=== PATIENT | female | born 1955 | race Caucasian/White ===

== ENCOUNTER → 2016-10-26 | Outpatient (CLI) | payer BC ==
[~2016-10-26] MED LIST: IOHEXOL 240 MG/ML 50ML VIAL. PO ONE; IOHEXOL 300 MG/ML 75 ML VIAL IV ONE
--- NOTE | 2016-10-26 15:30 | RAD ---
Exam performed: CT abdomen pelvis with contrast. History: Left lower quadrant pain, history of diverticulitis. Date of service: 10/26/16. Comparison: None available Technique: Contiguous helical acquisitions are obtained through the abdomen and pelvis during intravenous administration of 75 cc of Omnipaque 300. Oral contrast was given. Sagittal and coronal reformatted images are obtained and reviewed. Findings: Within the left lower quadrant there is a oval fatty attenuation surrounded by inflammatory changes. The findings are consistent with epiploic appendagitis. The lung bases are essentially clear. The visualized heart is normal. The liver, spleen, pancreas and gallbladder are normal. Both adrenal glands and bilateral kidneys are normal in size with symmetric excretion of contrast via both kidneys. There is no hydronephrosis or nephrolithiasis. The small and large bowel loops are nondilated and unremarkable. Appendix is normal. A hernia repair mesh is seen in the right mid and lower abdomen The urinary bladder is decompressed. The uterus is surgically absent. No adnexal masses seen. No free or focal fluid collections or pelvic lymphadenopathy seen. Interrogation of bone windows is unremarkable. Impression: 1. Findings consistent with epiploic appendagitis 2. Appendix is normal. PQRS Compliance Statement: One or more of the following individualized dose reduction techniques were utilized for this examination: 1. Automated exposure control 2. Adjustment of the mA and/or kV according to patient size 3. Use of iterative reconstruction technique
== END | disposition home or self-care (01) ==
LOC: CT 11:32
PROVIDERS: ATTEND Family Medicine
DX: R10.32 Left lower quadrant pain (principal); I10 Essential (primary) hypertension
CPT/HCPCS: 74177; Q9966; Q9967